=== PATIENT | female | born 1970 | race Caucasian/White ===

== ENCOUNTER 2018-12-02 21:05 | Inpatient (IN) | payer SELFPAY ==
[2018-12-02 21:17] VITALS: BMI 30.4
--- NOTE | 2018-12-02 21:34 | PDOC ---
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 Patient states that she has an intermittent 7/10 headache that stats in the center of her forehead and radiates over her left temporal region. The headache is worse in the morning, worse with bending over. Slightly improved with Tylenol but swiftly returns. She does have nausea and occasional vomiting. She does admit to some mild photphobia and sonophobia as well. Denies fevers, chills, diarrhea, abdominal pain, or other symptoms. 12/02/18 22:47 Past History - Past Medical History Allergies/Adverse Reactions: Allergies Allergy/AdvReac Type Severity Reaction Status Date / Time Penicillins Allergy Verified 12/02/18 22:57 COPD: No HTN: Yes Other medical history: vertigo - Suicide/Smoking/Psychosocial Hx Smoking History: Never smoked Have you smoked in the past 12 months: No Information on smoking cessation initiated: No Hx Alcohol Use: No Drug/Substance Use Hx: No Review of Systems - Review of Systems Constitutional: No: Chills, Fever HEENTM: Yes: Eye Pain, Blurred Vision, Tinnitus. No: Tearing Respiratory: No: Cough, Orthopnea, Shortness of Breath Cardiac (ROS): No: Chest Pain, Irregular Heart Rate, Lightheadedness ABD/GI: Yes: Nausea, Poor Appetite, Vomiting. No: Diarrhea : No: Incontinence, Urgency Musculoskeletal: No: Joint Pain, Muscle Pain, Muscle Weakness Integumentary: No: Erythema, Flushing, Lesions, Lumps Neurological: Yes: Paresthesia, Pre-Existing Deficit, Weakness. No: Numbness Psychiatric: No: Anxiety, Depression *Physical Exam - Vital Signs Last Vital Signs Temp Pulse Resp BP Pulse Ox 98.0 F 79 16 150/91 100 12/02/18 21:15 12/02/18 21:15 12/02/18 21:15 12/02/18 21:15 12/02/18 21:15 - Physical Exam General Appearance: Yes: Nourished, Appropriately Dressed. No: Apparent Distress HEENT: positive: EOMI, Normal Voice, Other (No cell and flare in the anterior chamber or corneal ulcer. 20/50 vision bilaterally. No tender or palpable cord over the bahai.). negative: ANDREW (Left sided APD), Normal ENT Inspection Neck: positive: Trachea midline, Normal Thyroid, Supple. negative: Tender, Rigid Respiratory/Chest: positive: Lungs Clear, Normal Breath Sounds. negative: Chest Tender, Respiratory Distress, Accessory Muscle Use Cardiovascular: positive: Regular Rhythm, Regular Rate Gastrointestinal/Abdominal: positive: Normal Bowel Sounds, Flat, Soft. negative : Tender Lymphatic: negative: Adenopathy, Tenderness Musculoskeletal: positive: Normal Inspection. negative: Decreased Range of Motion Extremity: positive: Normal Capillary Refill, Normal Inspection, Normal Range of Motion. negative: Tender Integumentary: positive: Normal Color, Dry, Warm Neurologic: positive: Fully Oriented, Alert, Normal Mood/Affect, Normal Response , Motor Strength 5/5 Moderate Sedation - Procedure Monitoring Vital Signs: Procedure Monitoring Vital Signs Temperature 98.0 F 12/02/18 21:15 Pulse Rate 79 12/02/18 21:15 Respiratory Rate 16 12/02/18 21:15 Blood Pressure 150/91 12/02/18 21:15 O2 Sat by Pulse Oximetry (%) 100 12/02/18 21:15 ED Treatment Course - LABORATORY CBC & Chemistry Diagram: 12/02/18 23:25 12/03/18 01:11 Medical Decision Making - Medical Decision Making 48 year old with presneting with left eye visual defects but equal 20/50 vision in both eyes and left sided headache for the past week. Given optic disk hyperema (detected by doctor jaime), age, and symtpoms this is concerning for a few diagnosis. these include MS vs. IIH vs. mass effect GCA vs. venous thrombosis. Head CT negative but MRI pending for further workup. Patient stable currently for admission, MRI, and further workup of symptoms. 12/03/18 02:42 *DC/Admit/Observation/Transfer Diagnosis at time of Disposition: Afferent pupillary defect of left eye, Visual symptoms Headache Qualifiers: Headache type: unspecified Headache chronicity pattern: acute headache Intractability: not intractable Qualified Code(s): R51 - Headache - Discharge Dispostion Disposition: HOME Condition at time of disposition: Improved Decision to Admit order: Yes - Referrals - Patient Instructions - Post Discharge Activity
--- NOTE | 2018-12-02 21:57 | CON.NEURO ---
Consult Consult Specialty:: NEUROLOGY-[facility] Reason for Consultation:: Headache - History of Present Illness History of Present Illness: 49 y/o lady sent from her internists office. She has a hx. of cervical radiculopathy(prob.bilat c5/6 after neck trauma), right Meniers(presented 2 years ago with sudden vertigo/tinnitus and progressive deafness since), now reports new RIBEIRO since last week sat, located left periorbital, occasionally radiates to left temp region, intensity3-7/10, + persistent left eye blurred vision and vomiting x1 on Sat+photophobia. RIBEIRO is not worsened by eye movements. Denies all other neurologic symptoms, RIBEIRO does improve somewhat with NSAIDs.Denies past sensory symptoms except bilat UE paresthesias from cerv.radic. - Alcohol/Substance Use Hx Alcohol Use: No - Smoking History Smoking history: Never smoked Have you smoked in the past 12 months: No Home Medications - Allergies Allergies/Adverse Reactions: Allergies Allergy/AdvReac Type Severity Reaction Status Date / Time Penicillins Allergy Verified 12/02/18 21:17 Physical Exam-Neuro Vital Signs: Vital Signs Temperature 98.0 F 12/02/18 21:15 Pulse Rate 79 12/02/18 21:15 Respiratory Rate 16 12/02/18 21:15 Blood Pressure 150/91 12/02/18 21:15 O2 Sat by Pulse Oximetry (%) 100 12/02/18 21:15 - Neuro Exam Eyes: Yes: Other (+ slight left afferent pupillary defect) Cranial Nerves II-XII Intact: No (=Right sensorineural hearing loss, left APD likely, + bilat hyperemic discs) DTR's: 2+ Left Bicep, 2+ Right Bicep, 2+ Left Tricep, 2+ Right Tricep, 2+ Left Brachioradialis, 2+ Right Brachioradialis, 2+ Left Achilles, 2+ Right Achilles Motor Strength: 5/5: Left Arm, Right Arm, Left Leg, Right Leg Gait: Normal Assessment/Plan Differential for left periorbital/temp RIBEIRO includes optic neuritis, orbital pathology, benign intracranial HTNvery less likely giant cell arteritis(she is too young for it), cerebral venous sinus thrombosis). Plan: MRI brain with contrast, if not possible tonight than CT head. Vitamin B12 level, Vit Dlevel, CBC,ESR, CRP Toradol 30mg i/mx1 Further management after above. Thank you ER staff for assistance. Karen Harris MD
[2018-12-02] MEDS ORDERED: FLUORESCEIN NA 1 EA STRIP ONE (22:40)
[2018-12-02] MEDS ORDERED: TETRACAINE 0.5% OPHTH SOLN 2 ML BOTTLE ONE (22:40)
--- NOTE | 2018-12-02 23:09 | PN ---
Progress Note (short form) - Note Progress Note: In differential also is glaucoma.
--- NOTE | 2018-12-02 23:41 | PDOC ---
Attending Attestation - Resident Resident Name: Andrey Wallace - ED Attending Attestation I have performed the following: I have examined & evaluated the patient, The case was reviewed & discussed with the resident, I agree w/resident's findings & plan, Exceptions are as noted - HPI HPI: 12/02/18 23:35 The patient is a 48 year old female, with a significant PMH of hypertension, cervical radiculopathy, right Meniere's, who presents to the emergency department with 5 days of headache and left eye blurry vision. The patient reports the headache is a dull pain, radiating from the center to the left periorbital region, worsened when looking down and alleviated with sitting in a dark room. The patient states the headache is worse in the mornings and better at night. The patient reports one episode of nausea with vomiting (non bloody non bilious) when the headache first began. The patient also endorses decreased appetite and photophobia associated with the headache. The patient states she visited her PCP when her symptoms first began who prescribed propranolol with minimal relief of the headache. The patient states when she returned to her PCP this evening she reported minimal relief of the headache and was sent to the ER for further evaluation. The patient also reports taking Tylenol and Ibuprofen for the headache with minimal relief. The patient denies chest pain, shortness of breath and dizziness. Denies fever, chills, diarrhea and constipation. Denies dysuria, frequency, urgency and hematuria. Allergies: Penicillins Social History: 1/2 - 1 PPD smoker. Denies alcohol or recreational drug use. Surgical History: None reported. Neurologist: Dr Harris - Physicial Exam PE: 12/02/18 23:41 Agree with resident exam - Medical Decision Making 12/02/18 23:41 48 F with headache, blurred vision in L eye. Exam notable for possible afferent pupillary defect. Will need to r/o optic neuritis. Also consider temporal arteritis. Pt with normal visual acuity both eyes, making acute angle closure glaucoma, CRVO/CRAO less likely. - Labs - CT head - MR brain w/ lokesh - Dr. Harris consulted - Admit
[2018-12-02 23:47] LABS: BASO % 0.3 % (0-2.0); EOS % 1.8 % (0-4.5); HEMATOCRIT 40.8 % (32.4-45.2); HEMOGLOBIN 14.2 GM/dL (10.7-15.3); LYMPH % 16.2 % (8-40); MCH 30.8 pg (25.7-33.7); MCHC 34.7 g/dl (32.0-36.0); MEAN CELL VOLUME 88.8 fl (80-96); MEAN PLT VOLUME 9.2 fl (7.5-11.1); MONO % 3.9 % (3.8-10.2); NEUT % 77.8 % (42.8-82.8); PLATELET COUNT 279 K/MM3 (134-434); RDW 17.1 % (11.6-15.6); WHITE BLOOD COUNT 14.5 K/mm3 (4.0-10.0)
[2018-12-03 00:30] LABS: INR 1.07 (0.83-1.09); PROTHROMBIN TIME (PATIENT) 12.6 SEC (9.7-13.0)
[2018-12-03 00:36] LABS: URINE APPEARANCE SLCLOUDY; URINE BILIRUBIN NEGATIVE (<2.0 mg/dL); URINE COLOR LTYELLOW; URINE GLUCOSE (UA) NEGATIVE (NEGATIVE); URINE KETONE NEGATIVE (NEGATIVE); URINE LEUK ESTERASE NEGATIVE (NEGATIVE); URINE NITRITE NEGATIVE (NEGATIVE); URINE PROTEIN NEGATIVE (NEGATIVE); URINE UROBILINOGEN NEGATIVE mg/dL (0.2-1.0)
[2018-12-03 00:37] LABS: HCG,QUALITATIVE URINE Negative
[2018-12-03 00:42] LABS: EPI CELLS FEW /HPF (FEW); URINE BACTERIA RARE /hpf (NONE SEEN)
[2018-12-03 02:22] LABS: ALBUMIN 2.9 g/dl (3.4-5.0); ALK PHOS 44 U/L (45-117); ANION GAP 6 MMOL/L (8-16); BILIRUBIN,TOTAL 0.6 mg/dL (0.2-1); BLOOD UREA NITROGEN 10 mg/dL (7-18); CALCIUM 7.2 mg/dL (8.5-10.1); CHLORIDE 109 mmol/L (98-107); CO2 24 mmol/L (21-32); CREATININE 0.6 mg/dL (0.55-1.3); GLUCOSE,RANDOM 84 mg/dL (74-106); POTASSIUM 3.3 mmol/L (3.5-5.1); SGOT/AST 17 U/L (15-37); SGPT/ALT 22 U/L (13-61); SODIUM 139 mmol/L (136-145); TOT PROT 5.5 g/dl (6.4-8.2)
[2018-12-03] MEDS ORDERED: POTASSIUM CHLORIDE TABS 20 MEQ TABLET.ER (FP) PO ONE ×2 (02:29→02:51)
--- NOTE | 2018-12-03 03:15 | HP ---
CHIEF COMPLAINT: headache and L sided blurry vision PCP: Dr. Pepe HISTORY OF PRESENT ILLNESS: 48F w/ pmhx of HTN, cervical radiculopathy, R Meniere's disease was sent to the ED by her PCP after complaints of 5 day history of headache and L blurry vision (started last Thursday). Pt started to have pain in her mid-forehead radiating to her L temporal region towards the L posterior region. The headache lasts for a couple of minutes and is rated about 8/10, but after taking Tylenol it is 5/ 10. When she does get the headache, it is associated with L sided visual changes where she report blurriness and seeing "ochoa circles." She reports getting these episodes about 1-2 times a day since its onset last Thursday. Also endorses dizziness during these episodes. Pt states she saw her PCP this past Thursday for her symptoms and was started on Propranolol. In the office, she was found to have a BP of 150/91, which is unusually high for her because when she takes her BP at home it is normal, last home measurement was 116/74. She reports her headache is better when she turns off the light. ER course was notable for: (1) (2) (3) Recent Travel: Denies PAST MEDICAL HISTORY: HTN cervical radiculopathy R Meniere's disease PAST SURGICAL HISTORY: Myomectomy (2016) Appendectomy Social History: Smoking: current smoker, 1/2 PPD Alcohol: Denies Drugs: Denies Family History: Father- sarcoidosis Maternal grandmother- Lung cx Allergies Penicillins Allergy (Verified 12/02/18 22:57) HOME MEDICATIONS: REVIEW OF SYSTEMS CONSTITUTIONAL: Absent: fever, chills, diaphoresis, generalized weakness, malaise, loss of appetite, weight change HEENT: Absent: rhinorrhea, nasal congestion, throat pain, throat swelling, difficulty swallowing, mouth swelling, ear pain, eye pain, visual changes CARDIOVASCULAR: Absent: chest pain, syncope, palpitations, irregular heart rate, lightheadedness , peripheral edema RESPIRATORY: Absent: cough, shortness of breath, dyspnea with exertion, orthopnea, wheezing, stridor, hemoptysis GASTROINTESTINAL: Absent: abdominal pain, abdominal distension, nausea, vomiting, diarrhea, constipation, melena, hematochezia GENITOURINARY: Absent: dysuria, frequency, urgency, hesitancy, hematuria, flank pain, genital pain MUSCULOSKELETAL: Absent: myalgia, arthralgia, joint swelling, back pain, neck pain SKIN: Absent: rash, itching, pallor HEMATOLOGIC/IMMUNOLOGIC: Absent: easy bleeding, easy bruising, lymphadenopathy, frequent infections ENDOCRINE: Absent: unexplained weight gain, unexplained weight loss, heat intolerance, cold intolerance NEUROLOGIC: Absent: headache, focal weakness or paresthesias, dizziness, unsteady gait, seizure, mental status changes, bladder or bowel incontinence PSYCHIATRIC: Absent: anxiety, depression, suicidal or homicidal ideation, hallucinations. PHYSICAL EXAMINATION Vital Signs - 24 hr 12/02/18 21:15 Temperature 98.0 F Pulse Rate 79 Respiratory 16 Rate Blood Pressure 150/91 O2 Sat by Pulse 100 Oximetry (%) GENERAL: Awake, alert, and fully oriented, in no acute distress. HEAD: Normal with no signs of trauma. EYES: Pupils equal, round and reactive to light, extraocular movements intact, sclera anicteric, conjunctiva clear. No lid lag. EARS, NOSE, THROAT: Ears normal, nares patent, oropharynx clear without exudates. Moist mucous membranes. NECK: Normal range of motion, supple without lymphadenopathy, JVD, or masses. LUNGS: Breath sounds equal, clear to auscultation bilaterally. No wheezes, and no crackles. No accessory muscle use. HEART: Regular rate and rhythm, normal S1 and S2 without murmur, rub or gallop. ABDOMEN: Soft, nontender, not distended, normoactive bowel sounds, no guarding, no rebound, no masses. No hepatomegaly or splenomegaly. MUSCULOSKELETAL: Normal range of motion at all joints. No bony deformities or tenderness. No CVA tenderness. UPPER EXTREMITIES: 2+ pulses, warm, well-perfused. No cyanosis. No clubbing. No peripheral edema. LOWER EXTREMITIES: 2+ pulses, warm, well-perfused. No calf tenderness. No peripheral edema. NEUROLOGICAL: Cranial nerves II-XII intact. Normal speech. Normal gait. PSYCHIATRIC: Cooperative. Good eye contact. Appropriate mood and affect. SKIN: Warm, dry, normal turgor, no rashes or lesions noted, normal capillary refill. Laboratory Results - last 24 hr 12/02/18 12/02/18 12/02/18 23:25 23:25 23:25 WBC 14.5 H RBC 4.60 Hgb 14.2 Hct 40.8 MCV 88.8 MCH 30.8 MCHC 34.7 RDW 17.1 H Plt Count 279 MPV 9.2 Absolute Neuts (auto) 11.3 H Neutrophils % 77.8 Lymphocytes % 16.2 Monocytes % 3.9 Eosinophils % 1.8 Basophils % 0.3 Nucleated RBC % 0 ESR PT with INR 12.60 INR 1.07 Sodium Cancelled Potassium Cancelled Chloride Cancelled Carbon Dioxide Cancelled Anion Gap Cancelled BUN Cancelled Creatinine Cancelled Creat Clearance w eGFR Cancelled Random Glucose Cancelled Calcium Cancelled Phosphorus Cancelled Magnesium Cancelled Total Bilirubin Cancelled AST Cancelled ALT Cancelled Alkaline Phosphatase Cancelled Total Protein Cancelled Albumin Cancelled Vitamin B12 Cancelled Urine Color Urine Appearance Urine pH Ur Specific Waka Urine Protein Urine Glucose (UA) Urine Ketones Urine Blood Urine Nitrite Urine Bilirubin Urine Urobilinogen Ur Leukocyte Esterase Urine WBC (Auto) Urine RBC (Auto) Ur Epithelial Cells Urine Bacteria Urine HCG, Qual Blood Type Antibody Screen 12/02/18 12/02/18 12/02/18 23:25 23:25 23:25 WBC RBC Hgb Hct MCV MCH MCHC RDW Plt Count MPV Absolute Neuts (auto) Neutrophils % Lymphocytes % Monocytes % Eosinophils % Basophils % Nucleated RBC % ESR PT with INR INR Sodium Potassium Chloride Carbon Dioxide Anion Gap BUN Creatinine Creat Clearance w eGFR Random Glucose Calcium Phosphorus Cancelled Magnesium Cancelled Total Bilirubin AST ALT Alkaline Phosphatase Total Protein Albumin Vitamin B12 Cancelled Urine Color Ltyellow Urine Appearance Slcloudy Urine pH 7.0 Ur Specific Waka 1.011 Urine Protein Negative Urine Glucose (UA) Negative Urine Ketones Negative Urine Blood 2+ H Urine Nitrite Negative Urine Bilirubin Negative Urine Urobilinogen Negative Ur Leukocyte Esterase Negative Urine WBC (Auto) 2 Urine RBC (Auto) None Ur Epithelial Cells Few Urine Bacteria Rare Urine HCG, Qual Negative Blood Type Cancelled Antibody Screen Cancelled 12/03/18 12/03/18 01:11 01:11 WBC RBC Hgb Hct MCV MCH MCHC RDW Plt Count MPV Absolute Neuts (auto) Neutrophils % Lymphocytes % Monocytes % Eosinophils % Basophils % Nucleated RBC % ESR 13 PT with INR INR Sodium 139 Potassium 3.3 L Chloride 109 H Carbon Dioxide 24 Anion Gap 6 L BUN 10 Creatinine 0.6 Creat Clearance w eGFR > 60 Random Glucose 84 Calcium 7.2 L Phosphorus Magnesium Total Bilirubin 0.6 AST 17 ALT 22 Alkaline Phosphatase 44 L Total Protein 5.5 L Albumin 2.9 L Vitamin B12 Urine Color Urine Appearance Urine pH Ur Specific Waka Urine Protein Urine Glucose (UA) Urine Ketones Urine Blood Urine Nitrite Urine Bilirubin Urine Urobilinogen Ur Leukocyte Esterase Urine WBC (Auto) Urine RBC (Auto) Ur Epithelial Cells Urine Bacteria Urine HCG, Qual Blood Type Antibody Screen IMAGING: ASSESSMENT/PLAN: 48F w/ pmhx of HTN, cervical radiculopathy, R Meniere's disease was sent to the ED by her PCP after complaints of 5 day history of headache and L blurry vision. #Headache and L-sided blurry vision; likely 2/2 migraine, r/o optic neuritis, glaucoma, neurological etiology -Per neuro, brain MRI with contrast ordered -Toradol 30 mg IVP given x1 with good effect; PRN for pain -f/u neuro recs -neuro checks -Vit B12, Mag, Phos ordered Cont home med: HCTZ/Triamterene, Propranolol 120 QD #R Meniere's disease -Currently not experiencing vertigo, but does have diminished hearing in R ear Cont home meds: HCTZ/Triamterene QD #Hx of cervical radiculopathy -Chronic and stable. #HTN Cont home meds: Amlodipine 2.5 PO QD, HCTZ/Triamterene QD #Hypokalemia; K 3.3 -1 dose of K-Dur 40 meq given -recheck BMP Cont home med: Mag Ox 400 QD #Prophylaxis -Lovenox 40 SQ #FEN -PO hydration -recheck BMP (K) in AM -sodium-controlled diet dispo -admit to med-surg inpatient -medications have been reconciled Visit type - Emergency Visit Emergency Visit: Yes ED Registration Date: 12/03/18 Care time: The patient presented to the Emergency Department on the above date and was hospitalized for further evaluation of their emergent condition. - New Patient This patient is new to me today: Yes Date on this admission: 12/03/18 - Critical Care Critical Care patient: No
--- NOTE | 2018-12-03 04:03 | PN ---
Teaching Attending Note Name of Resident: Rachana Shen ATTENDING PHYSICIAN STATEMENT I saw and evaluated the patient. I reviewed the resident's note and discussed the case with the resident. I agree with the resident's findings and plan as documented. SUBJECTIVE: Patient seen and examined; please refer to resident note for further historical information. Briefly, this is a 48 y/o female with a PMH significant for HTN, cervical radiculopathy, Meniere's disease, who presents with 5 days RIBEIRO and L- blurry vision (RIBEIRO int. but blurry sight is persistent). Location of the pain is mid-forehead to the L-side around the back. 1-2 episodes/day for several days. Improved somewhat with OTC NSAIDs and presybeterian massage. Some associated photophobia. Mild L-eye pain, RIBEIRO nearly resolved at the time of our encounter. ESR negative. Neurology saw in the ER and felt that the Ddx was significant for optic neuritis, orbital pathology, benign IC HTN; less likely giant cell as negative ESR and age. We were recomended to check B12 level, Vitamin D level, CBC, ESR, CRP. 10 sys ROS done and negative aside from HPI PMH, PSH, Family hx, Social hx reviewed Medication list pending reconciliation OBJECTIVE: VS, labs, imaging reviewed NAD, AAO, resting comfortably in bed NC AT EOMI; hyperemic discs noted on exam from Dr. Harris RRR s1/2 no mgr Lungs CTAB, w/ sym exp NT ND +BS Strength 5/5 all extremities, normal tone, no clonus, normal sensorium. Normal mood, appropriate affect ASSESSMENT AND PLAN: Presents for headache; neurology is following. Want to r/o serious pathology with additional neuroimaging. 1) Headache -Improved after the toradol recommended by neuro; will defer further workup and treatment to neurology. Followup MRI. B12 wnl. ESR wnl. -PRN management with APAP -Neuro checks Qshift 2) Hx HTN -Continue home meds 3) Hypokalemia -Repeat and replace PRN 4) Hx Radiculopathy -At baseline; likely ~C5 5) Hx Meniere's -Noted; will keep in mind for any otologic sx, etc. FENA -PO -PRN replete -Regular Diet -As tolerated Full Code
[2018-12-03 04:52] LABS: MAGNESIUM 1.8 mg/dL (1.8-2.4); PHOSPHOROUS 2.8 mg/dL (2.5-4.9)
[2018-12-03 08:37] LABS: HEMATOCRIT 38.1 % (32.4-45.2); HEMOGLOBIN 13.1 GM/dL (10.7-15.3); MCH 30.4 pg (25.7-33.7); MCHC 34.3 g/dl (32.0-36.0); MEAN CELL VOLUME 88.5 fl (80-96); PLATELET COUNT 228 K/MM3 (134-434); RBC 4.31 M/mm3 (3.60-5.2); RDW 14.2 % (11.6-15.6); WHITE BLOOD COUNT 8.7 K/mm3 (4.0-10.0)
[2018-12-03 09:09] LABS: ALBUMIN 3.3 g/dl (3.4-5.0); ALK PHOS 83 U/L (45-117); ANION GAP 5 MMOL/L (8-16); BILIRUBIN,TOTAL 0.5 mg/dL (0.2-1); BLOOD UREA NITROGEN 10 mg/dL (7-18); CALCIUM 8.1 mg/dL (8.5-10.1); CHLORIDE 107 mmol/L (98-107); CO2 26 mmol/L (21-32); CREATININE 0.5 mg/dL (0.55-1.3); GLUCOSE,RANDOM 88 mg/dL (74-106); POTASSIUM 3.9 mmol/L (3.5-5.1); SGOT/AST 13 U/L (15-37); SGPT/ALT 13 U/L (13-61); SODIUM 138 mmol/L (136-145); TOT PROT 6.6 g/dl (6.4-8.2)
[2018-12-03] MEDS ORDERED: CHOLECALCIFEROL (VITAMIN D3) 1,000 UNIT TABLET (FP) PO SCH (10:00)
[2018-12-03] MEDS ORDERED: TRIAMTERENE AND HCTZ - 37.5 MG/25 MG CAPSULE PO SCH (10:00)
[2018-12-03] MEDS ORDERED: MAGNESIUM OXIDE 400 MG TABLET (FP) PO SCH (10:00)
[2018-12-03] MEDS ORDERED: ENOXAPARIN NA (PORCINE) 40 MG/0.4 ML DISP.SYRIN SQ SCH (10:00)
[2018-12-03] MEDS ORDERED: CYANOCOBALAMIN 1,000 MCG TABLET (FP) PO SCH (10:00)
[2018-12-03] MEDS ORDERED: amLODIPine BESYLATE 2.5 MG TABLET (FP) PO SCH (10:00)
[2018-12-03] MEDS ORDERED: PT OWN MED DRAWER 7, Y5N ONE (10:35)
[2018-12-03] MEDS ORDERED: KETOROLAC TROMETHAMINE 30 MG/1 ML VIAL IVPUSH PRN (14:22)
[2018-12-03] MEDS ORDERED: SODIUM CHLORIDE 1,000 ML IV SCH (14:30)
--- NOTE | 2018-12-03 15:22 | PN ---
Physical Exam: SUBJECTIVE: Patient seen and examined at bedside- no acute events overnight; patient states that her blurred vision is improving though she is still having headaches- she denies ay CP/SOB/N/V fevers or chills OBJECTIVE: Vital Signs Period Temp Pulse Resp BP Sys/Barton Pulse Ox Last 24 Hr 98 F-98.2 F 57-79 16-18 117-150/59-93 100-100 GENERAL: The patient is awake, alert, and fully oriented, in no acute distress. EYES:PEERLA; EOMI; no scleral icterus; . NECK: no JVD; no lymphadenopathy. LUNGS: CTA B/L; no rales, rhonchi or wheezing HEART: Regular rate and rhythm, S1, S2 without murmur, rub or gallop. ABDOMEN: Soft, nontender, nondistended, normoactive bowel sounds, no guarding, no rebound, no hepatosplenomegaly, no masses. EXTREMITIES: 2+ pulses, warm, well-perfused, no edema. NEUROLOGICAL: Cranial nerves II through XII grossly intact. Normal speech, gait not observed. visual koenig intatct; no dysmetria present PSYCH: Normal mood, normal affect. SKIN: Warm, dry, normal turgor, no rashes or lesions noted Laboratory Results - last 24 hr 12/02/18 12/02/18 12/02/18 23:25 23:25 23:25 WBC 14.5 H RBC 4.60 Hgb 14.2 Hct 40.8 MCV 88.8 MCH 30.8 MCHC 34.7 RDW 17.1 H Plt Count 279 MPV 9.2 Absolute Neuts (auto) 11.3 H Neutrophils % 77.8 Lymphocytes % 16.2 Monocytes % 3.9 Eosinophils % 1.8 Basophils % 0.3 Nucleated RBC % 0 ESR PT with INR 12.60 INR 1.07 Sodium Cancelled Potassium Cancelled Chloride Cancelled Carbon Dioxide Cancelled Anion Gap Cancelled BUN Cancelled Creatinine Cancelled Creat Clearance w eGFR Cancelled Random Glucose Cancelled Calcium Cancelled Phosphorus Cancelled Magnesium Cancelled Total Bilirubin Cancelled AST Cancelled ALT Cancelled Alkaline Phosphatase Cancelled Total Protein Cancelled Albumin Cancelled Vitamin B12 Cancelled Urine Color Urine Appearance Urine pH Ur Specific [place] Urine Protein Urine Glucose (UA) Urine Ketones Urine Blood Urine Nitrite Urine Bilirubin Urine Urobilinogen Ur Leukocyte Esterase Urine WBC (Auto) Urine RBC (Auto) Ur Epithelial Cells Urine Bacteria Urine HCG, Qual Blood Type Antibody Screen 12/02/18 12/02/18 12/02/18 23:25 23:25 23:25 WBC RBC Hgb Hct MCV MCH MCHC RDW Plt Count MPV Absolute Neuts (auto) Neutrophils % Lymphocytes % Monocytes % Eosinophils % Basophils % Nucleated RBC % ESR PT with INR INR Sodium Potassium Chloride Carbon Dioxide Anion Gap BUN Creatinine Creat Clearance w eGFR Random Glucose Calcium Phosphorus Cancelled Magnesium Cancelled Total Bilirubin AST ALT Alkaline Phosphatase Total Protein Albumin Vitamin B12 Cancelled Urine Color Ltyellow Urine Appearance Slcloudy Urine pH 7.0 Ur Specific [place] 1.011 Urine Protein Negative Urine Glucose (UA) Negative Urine Ketones Negative Urine Blood 2+ H Urine Nitrite Negative Urine Bilirubin Negative Urine Urobilinogen Negative Ur Leukocyte Esterase Negative Urine WBC (Auto) 2 Urine RBC (Auto) None Ur Epithelial Cells Few Urine Bacteria Rare Urine HCG, Qual Negative Blood Type Cancelled Antibody Screen Cancelled 12/03/18 12/03/18 12/03/18 01:11 01:11 07:43 WBC 8.7 RBC 4.31 Hgb 13.1 Hct 38.1 MCV 88.5 MCH 30.4 MCHC 34.3 RDW 14.2 D Plt Count 228 MPV 9.0 Absolute Neuts (auto) Neutrophils % Lymphocytes % Monocytes % Eosinophils % Basophils % Nucleated RBC % ESR 13 PT with INR INR Sodium 139 Potassium 3.3 L Chloride 109 H Carbon Dioxide 24 Anion Gap 6 L BUN 10 Creatinine 0.6 Creat Clearance w eGFR > 60 Random Glucose 84 Calcium 7.2 L Phosphorus 2.8 Magnesium 1.8 Total Bilirubin 0.6 AST 17 ALT 22 Alkaline Phosphatase 44 L Total Protein 5.5 L Albumin 2.9 L Vitamin B12 410 Urine Color Urine Appearance Urine pH Ur Specific [place] Urine Protein Urine Glucose (UA) Urine Ketones Urine Blood Urine Nitrite Urine Bilirubin Urine Urobilinogen Ur Leukocyte Esterase Urine WBC (Auto) Urine RBC (Auto) Ur Epithelial Cells Urine Bacteria Urine HCG, Qual Blood Type Antibody Screen 12/03/18 07:43 WBC RBC Hgb Hct MCV MCH MCHC RDW Plt Count MPV Absolute Neuts (auto) Neutrophils % Lymphocytes % Monocytes % Eosinophils % Basophils % Nucleated RBC % ESR PT with INR INR Sodium 138 Potassium 3.9 Chloride 107 Carbon Dioxide 26 Anion Gap 5 L BUN 10 Creatinine 0.5 L Creat Clearance w eGFR > 60 Random Glucose 88 Calcium 8.1 L Phosphorus Magnesium Total Bilirubin 0.5 AST 13 L ALT 13 Alkaline Phosphatase 83 Total Protein 6.6 Albumin 3.3 L Vitamin B12 Urine Color Urine Appearance Urine pH Ur Specific [place] Urine Protein Urine Glucose (UA) Urine Ketones Urine Blood Urine Nitrite Urine Bilirubin Urine Urobilinogen Ur Leukocyte Esterase Urine WBC (Auto) Urine RBC (Auto) Ur Epithelial Cells Urine Bacteria Urine HCG, Qual Blood Type Antibody Screen Active Medications Generic Name Dose Route Start Last Admin Trade Name Merlyn PRN Reason Stop Dose Admin Amlodipine Besylate 2.5 mg 12/03/18 10:00 12/03/18 10:54 Norvasc - PO 2.5 mg DAILY ROCHELLE Administration Cholecalciferol 2,000 unit 12/03/18 10:00 12/03/18 10:54 Vitamin D3 - PO 2,000 unit DAILY ROCHELLE Administration Cyanocobalamin 1,000 mcg 12/03/18 10:00 12/03/18 10:54 Vitamin B12 - PO 1,000 mcg DAILY ROCHELLE Administration Enoxaparin Sodium 40 mg 12/03/18 10:00 12/03/18 10:54 Lovenox - SQ 40 mg DAILY ROCHELLE Administration Sodium Chloride 1,000 mls @ 75 mls/hr 12/03/18 14:30 Normal Saline - IV ASDIR ROCHELLE Ketorolac Tromethamine 30 mg 12/03/18 14:22 Toradol Injection - IVPUSH 12/08/18 14:21 Q6H PRN PAIN LEVEL 4 - 6 Magnesium Oxide 400 mg 12/03/18 10:00 12/03/18 10:54 Mag-Ox - PO 400 mg DAILY ROCHELLE Administration Propranolol HCl 120 mg 12/03/18 10:00 12/03/18 10:55 Inderal La - PO 120 mg DAILY ROCHELLE Administration Triamterene/HCTZ 1 cap 12/03/18 10:00 12/03/18 10:56 Dyazide 25/37.5mg PO 1 cap DAILY ROCHELLE Administration ASSESSMENT/PLAN: 48F w/ pmhx of HTN, cervical radiculopathy, R Meniere's disease was sent to the ED by her PCP after complaints of 5 day history of headache and L blurry vision. #Headache and L-sided blurry vision; likely 2/2 migraine, r/o optic neuritis, glaucoma, neurological etiology -Per neuro, brain MRI with contrast ordered in addition to MRI of the orbits to r/o optic neuritis -Toradol 30 mg IVP given x1 with good effect; PRN for pain -f/u neuro recs -neuro checks -Vit B12, Mag, Phos ordered Cont home med: HCTZ/Triamterene, Propranolol 120 QD #R Meniere's disease -Currently not experiencing vertigo, but does have diminished hearing in R ear Cont home meds: HCTZ/Triamterene QD #Hx of cervical radiculopathy -Chronic and stable. #HTN Cont home meds: Amlodipine 2.5 PO QD, HCTZ/Triamterene QD #Hypokalemia; K 3.3 -1 dose of K-Dur 40 meq given -K now 3.9 #Prophylaxis -Lovenox 40 SQ #FEN -PO hydration -recheck BMP (K) in AM -sodium-controlled diet Problem List - Problems (1) Afferent pupillary defect of left eye Code(s): H21.562 - PUPILLARY ABNORMALITY, LEFT EYE (2) Headache Code(s): R51 - HEADACHE Qualifiers: Headache type: unspecified Headache chronicity pattern: acute headache Intractability: not intractable Qualified Code(s): R51 - Headache (3) Visual symptoms Code(s): H57.9 - UNSPECIFIED DISORDER OF EYE AND ADNEXA Visit type - Emergency Visit Emergency Visit: Yes ED Registration Date: 12/03/18 Care time: The patient presented to the Emergency Department on the above date and was hospitalized for further evaluation of their emergent condition. - New Patient This patient is new to me today: Yes Date on this admission: 12/03/18 - Critical Care Critical Care patient: No
--- NOTE | 2018-12-03 17:01 | PN ---
Progress Note, Physician Chief Complaint: headche History of Present Illness: several days of left periorbital headache radiating to the temporoparietal area with some nausea, light and noise sensitivity. Now improving. Imaging negative - Current Medication List Current Medications: Active Medications Amlodipine Besylate (Norvasc -) 2.5 mg PO DAILY [facility] Last Admin: 12/03/18 10:54 Dose: 2.5 mg Cholecalciferol (Vitamin D3 -) 2,000 unit PO DAILY [facility] Last Admin: 12/03/18 10:54 Dose: 2,000 unit Cyanocobalamin (Vitamin B12 -) 1,000 mcg PO DAILY [facility] Last Admin: 12/03/18 10:54 Dose: 1,000 mcg Enoxaparin Sodium (Lovenox -) 40 mg SQ DAILY [facility] Last Admin: 12/03/18 10:54 Dose: 40 mg Sodium Chloride (Normal Saline -) 1,000 mls @ 75 mls/hr IV ASDIR [facility] Ketorolac Tromethamine (Toradol Injection -) 30 mg IVPUSH Q6H PRN PRN Reason: PAIN LEVEL 4 - 6 Stop: 12/08/18 14:21 Magnesium Oxide (Mag-Ox -) 400 mg PO DAILY [facility] Last Admin: 12/03/18 10:54 Dose: 400 mg Propranolol HCl (Inderal La -) 120 mg PO DAILY [facility] Last Admin: 12/03/18 10:55 Dose: 120 mg Triamterene/HCTZ (Dyazide 25/37.5mg) 1 cap PO DAILY [facility] Last Admin: 12/03/18 10:56 Dose: 1 cap - Objective Vital Signs: Vital Signs Temperature 98.1 F 12/03/18 14:54 Pulse Rate 57 L 12/03/18 14:54 Respiratory Rate 18 12/03/18 14:54 Blood Pressure 117/59 L 12/03/18 14:54 O2 Sat by Pulse Oximetry (%) 100 12/03/18 09:00 HENT: Yes: WNL, Other (I was able to examine her discs with a panoptic ophthalmoscope. There are distinct margins, narvaez yellow color and they are flat.) Neurological: Yes: WNL Labs: CBC, BMP 12/03/18 07:43 12/03/18 07:43 INR, PTT INR 1.07 (0.83-1.09) 12/02/18 23:25 Problem List - Problems (1) Headache Code(s): R51 - HEADACHE Qualifiers: Headache type: unspecified Headache chronicity pattern: acute headache Intractability: not intractable Qualified Code(s): R51 - Headache (2) Migraine Code(s): G43.909 - MIGRAINE, UNSP, NOT INTRACTABLE, WITHOUT STATUS MIGRAINOSUS Qualifiers: Migraine type: without aura Status migrainosus presence: with status migrainosus Assessment/Plan Workup unremarkable. Headache improving. Strong family history of migraine and she has associated features of migraine. I don't appreciate papilledema on ophthalmic exam. Would recommend discharge at this point. Can f/u as outpatient
--- NOTE | 2018-12-03 17:22 | PN ---
Teaching Attending Note Name of Resident: Bing Walters ATTENDING PHYSICIAN STATEMENT I saw and evaluated the patient. I reviewed the resident's note and discussed the case with the resident. I agree with the resident's findings and plan as documented. SUBJECTIVE: No fever or chills. Eli improved . No visual changes at time of eval. had L eye visual events on and off in ppast 5 days ( circles in visual field ) . denies numbness, tingling, or weakness. OBJECTIVE: NAD Cv: RRR Lungs: CTAB Ext: no edema Neuro: EOMI, round equal pupils, reactive to light , has no facial droop. tongue and uvula at mid line . nl facial sensation . strength 5/5 in upper and lower extremities proximally and distally. sensation tolight touch is NL, no dysmetria. Visual filed with no deficits ASSESSMENT AND PLAN: 48 y/o lady with h/o Miniere's disease, and HTn , with cervical radiculopathy who presented with ELI with aura 1- ELI with aura, likley due to Migraines . MRI with no pathology. aura resolved and ELI improved no neuro deficits at this time. d/c on fioricet and f/u with neuro was just started on propranolol for migraine prophylaxis as out pt 2- H/o Miniere's cont diuretics 3- HTN : cont meds dispo : DC home
--- NOTE | 2018-12-03 17:55 | DS ---
Physical Exam: SUBJECTIVE: Patient seen and examined OBJECTIVE: Vital Signs Period Temp Pulse Resp BP Sys/Barton Pulse Ox Last 24 Hr 98 F-98.2 F 57-79 16-18 117-150/59-93 100-100 PHYSICAL EXAM GENERAL: The patient is awake, alert, and fully oriented, in no acute distress. EYES: PEERLA; EOMI; no scleral icteurs NECK: no JVD; no lymphadenopathy LUNGS: Breath sounds equal, clear to auscultation bilaterally, no wheezes, no crackles, no accessory muscle use. HEART: Regular rate and rhythm, S1, S2 without murmur, rub or gallop. ABDOMEN: Soft, nontender, nondistended, normoactive bowel sounds, no guarding, no rebound, no hepatosplenomegaly, no masses. EXTREMITIES: 2+ pulses, warm, well-perfused, no edema. NEUROLOGICAL: Cranial nerves II through XII grossly intact. Normal speech, gait not observed. PSYCH: Normal mood, normal affect. SKIN: Warm, dry, normal turgor, no rashes or lesions noted. LABS Laboratory Results - last 24 hr 12/02/18 12/02/18 12/02/18 23:25 23:25 23:25 WBC 14.5 H RBC 4.60 Hgb 14.2 Hct 40.8 MCV 88.8 MCH 30.8 MCHC 34.7 RDW 17.1 H Plt Count 279 MPV 9.2 Absolute Neuts (auto) 11.3 H Neutrophils % 77.8 Lymphocytes % 16.2 Monocytes % 3.9 Eosinophils % 1.8 Basophils % 0.3 Nucleated RBC % 0 ESR PT with INR 12.60 INR 1.07 Sodium Cancelled Potassium Cancelled Chloride Cancelled Carbon Dioxide Cancelled Anion Gap Cancelled BUN Cancelled Creatinine Cancelled Creat Clearance w eGFR Cancelled Random Glucose Cancelled Calcium Cancelled Phosphorus Cancelled Magnesium Cancelled Total Bilirubin Cancelled AST Cancelled ALT Cancelled Alkaline Phosphatase Cancelled Total Protein Cancelled Albumin Cancelled Vitamin B12 Cancelled Urine Color Urine Appearance Urine pH Ur Specific [place] Urine Protein Urine Glucose (UA) Urine Ketones Urine Blood Urine Nitrite Urine Bilirubin Urine Urobilinogen Ur Leukocyte Esterase Urine WBC (Auto) Urine RBC (Auto) Ur Epithelial Cells Urine Bacteria Urine HCG, Qual Blood Type Antibody Screen 12/02/18 12/02/18 12/02/18 23:25 23:25 23:25 WBC RBC Hgb Hct MCV MCH MCHC RDW Plt Count MPV Absolute Neuts (auto) Neutrophils % Lymphocytes % Monocytes % Eosinophils % Basophils % Nucleated RBC % ESR PT with INR INR Sodium Potassium Chloride Carbon Dioxide Anion Gap BUN Creatinine Creat Clearance w eGFR Random Glucose Calcium Phosphorus Cancelled Magnesium Cancelled Total Bilirubin AST ALT Alkaline Phosphatase Total Protein Albumin Vitamin B12 Cancelled Urine Color Ltyellow Urine Appearance Slcloudy Urine pH 7.0 Ur Specific [place] 1.011 Urine Protein Negative Urine Glucose (UA) Negative Urine Ketones Negative Urine Blood 2+ H Urine Nitrite Negative Urine Bilirubin Negative Urine Urobilinogen Negative Ur Leukocyte Esterase Negative Urine WBC (Auto) 2 Urine RBC (Auto) None Ur Epithelial Cells Few Urine Bacteria Rare Urine HCG, Qual Negative Blood Type Cancelled Antibody Screen Cancelled 12/03/18 12/03/18 12/03/18 01:11 01:11 07:43 WBC 8.7 RBC 4.31 Hgb 13.1 Hct 38.1 MCV 88.5 MCH 30.4 MCHC 34.3 RDW 14.2 D Plt Count 228 MPV 9.0 Absolute Neuts (auto) Neutrophils % Lymphocytes % Monocytes % Eosinophils % Basophils % Nucleated RBC % ESR 13 PT with INR INR Sodium 139 Potassium 3.3 L Chloride 109 H Carbon Dioxide 24 Anion Gap 6 L BUN 10 Creatinine 0.6 Creat Clearance w eGFR > 60 Random Glucose 84 Calcium 7.2 L Phosphorus 2.8 Magnesium 1.8 Total Bilirubin 0.6 AST 17 ALT 22 Alkaline Phosphatase 44 L Total Protein 5.5 L Albumin 2.9 L Vitamin B12 410 Urine Color Urine Appearance Urine pH Ur Specific [place] Urine Protein Urine Glucose (UA) Urine Ketones Urine Blood Urine Nitrite Urine Bilirubin Urine Urobilinogen Ur Leukocyte Esterase Urine WBC (Auto) Urine RBC (Auto) Ur Epithelial Cells Urine Bacteria Urine HCG, Qual Blood Type Antibody Screen 12/03/18 07:43 WBC RBC Hgb Hct MCV MCH MCHC RDW Plt Count MPV Absolute Neuts (auto) Neutrophils % Lymphocytes % Monocytes % Eosinophils % Basophils % Nucleated RBC % ESR PT with INR INR Sodium 138 Potassium 3.9 Chloride 107 Carbon Dioxide 26 Anion Gap 5 L BUN 10 Creatinine 0.5 L Creat Clearance w eGFR > 60 Random Glucose 88 Calcium 8.1 L Phosphorus Magnesium Total Bilirubin 0.5 AST 13 L ALT 13 Alkaline Phosphatase 83 Total Protein 6.6 Albumin 3.3 L Vitamin B12 Urine Color Urine Appearance Urine pH Ur Specific [place] Urine Protein Urine Glucose (UA) Urine Ketones Urine Blood Urine Nitrite Urine Bilirubin Urine Urobilinogen Ur Leukocyte Esterase Urine WBC (Auto) Urine RBC (Auto) Ur Epithelial Cells Urine Bacteria Urine HCG, Qual Blood Type Antibody Screen imaging: head CT- no acute pathology MRI brain/ORbits: no enlargement of optic nerves; no gross abnormalirt no enhancement of optic nerves HOSPITAL COURSE: Date of Admission:12/03/18 48 y/o female with PMH of HTN, cervical radiculopathy, R menieres disease, presented with a 5 day history of worsening headaches and blurred vision. the onset was sudden and the vision changes were intermittent patient also had vertigo off and on. she thought she was experiencing migraines so she went to her pcp who started her prophylatyically on propanolol whihc provided some relief but not a lot so she came to the ED. vitals were stable, imaging was negative- she was seen by neurology who recommended ruling out optic neuritis with orbit MRI which was negative. her symptoms subsided and she was discharged home with fioricet and to follow up with neurolgy. Date of Discharge: 12/03/18 Minutes to complete discharge: 39 Discharge Summary Reason For Visit: AFFERENT PUPILLARY DEFECT OF LT EYE HEADACHE BLURR Current Active Problems Headache (Acute) Migraine (Acute) Visual symptoms (Acute) Condition: Improved - Instructions Diet, Activity, Other Instructions: You came to the hospital with complaints of blurred vision and a headache; we did an MRI of your brain and orbits which did not show any acute pathology. We gave you pain medications and fluids and your symptoms improved. -Please resume all of your homed medications in addition: please take the medication fioricet twice a day as needed Please follow up with you primary care physician within one week' Please follow up with Dr. Harris, the neurologist, within one week *if you begin to have blurred vision, headaches, chest pain, shortness of breath , please return to the emergency room immediately. Referrals: Danny Harris MD [Staff Physician] - 1 Week Kenyatta Pepe [Primary Care Provider] - 1 Week - Home Medications Comprehensive Discharge Medication List: Ambulatory Orders Acetaminophen/Caffeine/Butalb [Fioricet -] 1 tab PO Q12H PRN #6 tablet MDD 2 tab 12/03/18 Amlodipine Besylate 2.5 mg PO DAILY 12/03/18 Cholecalciferol (Vitamin D3) [Vitamin D3] 2,000 unit PO DAILY 12/03/18 Cyanocobalamin [Vitamin B12 -] 1,000 mcg PO DAILY 12/03/18 Hctz 25Mg/Triamterene [Dyazide 25/37.5 -] 1 cap PO DAILY 12/03/18 Magnesium Oxide [Magnesium] 400 mg PO DAILY 12/03/18 Propranolol HCl [Propranolol HCl ER] 120 mg PO DAILY 12/03/18 Problem List - Problems (1) Afferent pupillary defect of left eye Code(s): H21.562 - PUPILLARY ABNORMALITY, LEFT EYE (2) Headache Code(s): R51 - HEADACHE Qualifiers: Headache type: unspecified Headache chronicity pattern: acute headache Intractability: not intractable Qualified Code(s): R51 - Headache (3) Visual symptoms Code(s): H57.9 - UNSPECIFIED DISORDER OF EYE AND ADNEXA This patient is new to me today: Yes Date on this admission: 12/03/18 Emergency Visit: Yes ED Registration Date: 12/03/18 Care time: The patient presented to the Emergency Department on the above date and was hospitalized for further evaluation of their emergent condition. Critical Care patient: No - Discharge Referral Referred to [facility] No
[2018-12-03 18:40] VITALS: BP 121/79; PULSE 56; TEMP 97.8
== END 2018-12-03 18:42 | disposition home or self-care (01) | DRG 54 ==
LOC: JER 21:05 → JERBED 12-03 00:57 → J5S 12-03 03:23
PROVIDERS: ADMIT Internal Medicine; ATTEND Internal Medicine
DX: G43.901 Migraine, unspecified, not intractable, with status migrainosus (principal); H21.562 Pupillary abnormality, left eye; I10 Essential (primary) hypertension; H81.01 Meniere's disease, right ear; M54.12 Radiculopathy, cervical region; F17.210 Nicotine dependence, cigarettes, uncomplicated; E87.6 Hypokalemia; H57.9 Unspecified disorder of eye and adnexa
CPT/HCPCS: 36415; 70450-TC; 70543-TC; 80053; 81003; 81015; 82607; 83735; 84100; 84703; 85025; 85027; 85610; 85651; 99281-25